=== PATIENT | female | born 1965 | race Caucasian/White ===

== ENCOUNTER 2024-12-09 10:58 | Outpatient (AMB) | payer BC, SELFPAY ==
[2024-12-09 11:14] VITALS: BMI 28.3
--- NOTE | 2024-12-09 11:14 | A.SPINEOV_ITS ---
Vital Signs 12/09/24 11:14 Height 5 ft 4 in Weight 165 lb BMI 28.3 Intake Visit Reasons: Neck pain R arm pain Intake Note: Ms. Davis is here today c/o neck pain radiating to shulders. [employer] Required: No Allergies General Anesthesia Allergy (Severe, Uncoded 12/09/24 11:16) Nausea and Vomiting Physical Exam Vital Signs: BMI result Body Mass Index 28.3 Assessment & Plan Assessment & Plan (1) Cervical spondylosis with myelopathy and radiculopathy: Code(s): M47.12 - Other spondylosis with myelopathy, cervical region; M47.22 - Other spondylosis with radiculopathy, cervical region Category: Medical Plan Dear colleague Thank you for referring Suzanna Davis to the office today with a chief com plaint of right arm pain. HPI: This 59-year-old female is suffering from right arm pain that radiates from the neck down to his shoulder blade into her right arm and index finger. The pain started in 2021 where she had 1 episode of severe right arm pain that resolved with a regimen of PT. Since then she had several flare-ups and the quantity of flare-ups is increasing. The last flare-up was in October and has recently come down. She has residual numbness and tingling of her right index finger. She denies weakness. She denies balance problems. She denies dexterity loss. The left side is unaffected. She complete a course of physical therapy in his still doing a home exercise plan. She also tried acupuncture and takes ibuprofen and Tylenol extra-strength for daily discomfort. PMH: WPW syndrome, IBS, laparoscopic ovarian surgery, . 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 Physical Exam: Pleasant female. Currently he denies pain. There is hypoesthesia of the right index finger. There is hyperreflexia of the biceps and brachial radial reflex on the right side with a Anjana reflex on the right side. Gait is undisturbed. Radiological Studies: MRI done at [facility] on 10/27/2024 shows kyphosis of the cervical spine with cervical degenerative disc disease of C4-5 C5-6 and C6-7. More importantly, there is [id number] spinal cord compression with a spot of myelomalacia on the FLAIR images and bilateral foraminal stenosis. Impression/Plan: This patient is suffering from cervical radiculopathy but also myelopathic findings on exam due to spinal cord compression at C5-6. I recommended an anterior diskectomy and fusion C5-6 based on the neurological exam. She will call my office for a surgical date. Thank you for allowing me to participate in your patients care. total time spent was 50 minutes in counseling ,coordination of plan, personal review of imaging, surgical decision making and subsequent plan Walter Sin MD, PhD Spine Fellowship Trained Neurosurgeon Director, [facility] Coding Level of Care Code New Pt Level 4 (21551) Diagnoses Cervical spondylosis with myelopathy and radiculopathy M47.12; M47.22
== END 2024-12-09 12:23 | disposition home or self-care (01) ==
LOC: HO.HNS 10:59
PROVIDERS: PCP Nurse Practitioner Family; Referring Provider Nurse Practitioner Family; Visit Provider Neurological Surgery
DX: M47.12 Other spondylosis with myelopathy, cervical region (principal); M47.22 Other spondylosis with radiculopathy, cervical region
CPT/HCPCS: 99204